=== PATIENT | female | born 1955 | race Caucasian/White ===

== ENCOUNTER 2016-11-20 17:40 | Emergency (ER) | payer OTHER ==
--- NOTE | 2016-11-20 18:25 | DIAGNOSTIC IMAGING REPORT ---
PROCEDURE: XR SOFT TISSUE NECK INDICATION: FOREIGN BODY TECHNIQUE: AP and lateral views. COMPARISON: None. FINDINGS: Soft tissues of the neck are within normal limits, including the airway, laryngeal ventricle, and epiglottis. Nasopharynx appears normal. Radiopaque densities overlying the face consistent with skin makeup (reported by technologist). There are moderate degenerative change of the cervical spine with straightening of the cervical lordosis IMPRESSION: 1. Normal soft tissues of the neck.
--- NOTE | 2016-11-20 19:17 | ED ORDER SUMMARY ---
..... Patient: ABRAN ALEX OrderSheet [facility] VisitID: [id number] [place] [address] 61y, F Registration Date/Time: 11/20/2016 ORDER SHEET Weight: 56.6 kg (stated) Allergies: No Known Drug Allergy GENERAL ORDERS: Soft Tissue Neck Urgent (17:56 11/20/2016 Sonny VILLANUEVA) (Ack 18:10 NHouse ER Tech1) (18:10 NHouse ER Tech1) MEDICATION ORDERS: Glucagon IV 0.5 mg (NOW) (17:56 11/20/2016 Sonny VILLANUEVA) (18:15 LSullivan R.N.) GI Cocktail WHITE PO 30 mL with Lidocaine Viscous Mouth/Throat 15 mL, Maalox Plus Oral 15 mL (NOW) (18:29 11/20/2016 Sonny VILLANUEVA) (Ack 18:31 JSimbeck R.N.) (18:37 JSimbeck R.N.) IV FLUIDS: IV Saline Lock (18:13 11/20/2016 LSullivan R.N. verbal order read back to Sonny VILLANUEVA) (18:14 LSullivan R.N.) ORDER SHEET NOTES: [Electronically signed by Spenser Ham R.N. (23:14 11/20/2016)] [Electronically signed by Chato Francis MD (03:45 11/22/2016)] [Electronically locked/signed by Spenser Ham R.N. (23:14 11/20/2016)]
--- NOTE | 2016-11-20 19:17 | ED NURSING NOTES ---
Clinical Report - Nurses [facility] [address] [place] [address] 11/20/2016 17:41 Patient: ABRAN ALEX TRIAGE Triage time 17:46. Acuity: LEVEL 2. Chief Complaint: SORE THROAT and (pt states has a half of radish stuck in her esophagus, able to swallow some water). Alert. --17:50 Valentine Lancaster R.N. 17:45 11/20/16. BP: 157/97. HR: 97. RR: 18. O2 saturation: 98%. Temp: 98 F. Pain level now: 02/20. --17:50 Valentine Lancaster R.N. Weight: 56.6 kg stated. Height/Length: 63 inches Per Patient. BMI: 22.1. --17:48 Valentine Lancaster R.N. Medications Bhrt. --17:50 Valentine Lancaster R.N. Allergies No Known Drug Allergy. --17:50 Valentine Lancaster R.N. History Arrived by private vehicle. Historian: patient. Accompanied by spouse. Primary physician ([facility]). This started just prior to arrival and today. PAST MEDICAL HX: Negative. Immunizations: status is unknown. SURGERY HX: No history of previous surgery. SOCIAL HX: Former smoker, end date 1991. Never smoker. Occasional alcohol use. No drug use. NUTRITIONAL RISK ASSESSMENT: The nutritional risk assessment revealed no deficiencies. FUNCTIONAL ASSESSMENT: Functional assessment: no impairments noted. LEARNING NEEDS ASSESSMENT: The learning needs assessment revealed no barriers. --17:50 Valentine Lancaster R.N. SOCIAL HX: The patient has not traveled outside the [place] The patient was not exposed to MRSA. No infectious disease exposure. ABUSE ASSESSMENT: Abuse assessment: The patient was asked "Do you feel safe in your home?" and "Has anyone hurt you or threatened to hurt you?". No report of abuse. SELF HARM ASSESSMENT: A self harm assessment was performed. The patient answered "no" to the question "Do you have thoughts of harming or killing yourself?" and "Have you recently had thoughts about harming or killing others?". --19:10 Spenser Ham R.N. PROBLEMS: no known problems. ADDITIONAL SURGERIES: no known surgeries. Interventions ID band on patient. To room. --17:50 Valentine Lancaster R.N. PHYSICAL ASSESSMENT 17:50 11/20/16. GENERAL / NEURO / PSYCH: Alert. Oriented X 4. ( stridor heard upper airway). --17:50 Valentine Lancaster R.N. NURSING PROGRESS NOTES 17:51 11/20/16. Patient identifiers checked. Call light placed in reach. Bed placed in lowest position. Brakes of bed on. Patient ready for evaluation- chart flagged. --17:51 Valentine Lancaster R.N. ( ERMD made aware of pt). --17:51 Valentine Lancaster R.N. 17:59 11/20/2016 Site #1 started via IV in the right wrist with an 20g angiocath, with aseptic technique and good blood return; one attempt. Blood drawn: rainbow set. Labeled in the presence of the patient and sent to the lab. Saline lock flushed with 10 mL saline. --18:14 Valentine Lancaster R.N. 18:05 11/20/2016 Glucagon IVP 0.5 mg given over 1 minute(s) via site #1. Allergies verified and confirmed 5 rights. IV flushed thoroughly pre- and post-medication administration. --18:15 Valentine Lancaster R.N. 18:10. corporate specialist, pulse oximeter and NIBP monitor placed on patient; cardiac cath technologist- Lead II and V1; monitor alarms on. ( Pt is clearly uncomfortable, tonsil suction within pt's reach). --18:21 Valentine Lancaster R.N. 18:35 11/20/2016 GI COCKTAIL WHITE (Simethicone) PO Oral Suspension 30 mL given. Allergies verified and confirmed 5 rights. --18:37 Perez Wells R.N. 19:00 11/20/16. HR: 76. RR: 24. O2 saturation: 100%. --19:00 Valentine Lancaster R.N. Oxygen discontinued (Removing oxygen source to ensure oxygen saturation is stable before discharge.). corporate specialist, pulse oximeter and NIBP monitor placed on patient; cardiac cath technologist- Lead II. The patient is calm and resting quietly. ( Abran says she is not experiencing any pain other than feeling discomfort when she swallows.). GENERAL / NEURO / PSYCH: [place] Coma Scale: 15- eyes open spontaneously (4); best verbal response- oriented x 4 (5); best motor response- obeys commands (6). RESPIRATORY: No respiratory distress. No respiratory distress. Chest nontender. Breath sounds normal. SKIN: Skin is warm and dry. Skin color is within normal limits for race. Two patient identifiers checked. Call light placed in reach. Side rails up x 2. Bed placed in lowest position. Brakes of bed on. Care transferred and report received (MIC Grijalva). --19:10 Spenser Ham R.N. 19:08 11/20/16. BP: 134/83 (regular adult cuff) taken on the left arm, via an automated monitor, while lying. HR: 81 (regular and normal rate). RR: 20 (regular, unlabored and normal). O2 saturation: 100% on nasal cannula at 3 liters/minute. Temp: 98.2 F (oral). Pain level now: 0/10. --19:10 Spenser Ham R.N. 20:02. The patient is calm and resting quietly. RESPIRATORY: No respiratory distress. SKIN: Skin is warm and dry. Skin color is within normal limits for race. --20:05 Matthew Bob R.N. DISPOSITION / DISCHARGE 20:00 11/20/2016 Site #1 removed upon discharge. Catheter intact. Bandage applied. --20:05 Matthew Bob R.N. Departure time: 20:04. Condition at departure: stable. No learning barriers present. Discharge instructions provided and reviewed with the patient and spouse. Patient and spouse verbalized understanding. Written instructions provided in Armenian. The patient was discharged home and accompanied by spouse. She left the Emergency Department ambulatory and via private vehicle. Spouse driving. FALL RISK ASSESSMENT: Fall risk assessment completed. No fall risk identified. --20:05 Matthew Bob R.N. 19:59 11/20/16. BP: 137/85. HR: 76. RR: 16. O2 saturation: 96% on room air. --20:05 Matthew Bob R.N. 19:59 11/20/16. Pain level now: 0/10. Additional comments: Patient reports mild pain when she swallows . --20:08 Matthew Bob R.N. Locked/Released at 11/20/2016 23:14 by Spenser Ham R.N.
--- NOTE | 2016-11-20 19:17 | ED CLINICAL REPORT ---
Clinical Report - Physicians/Mid Levels [facility] [address] [place] [address] 11/20/2016 17:41 Patient: ABRAN ALEX Time Seen: 17:50. Arrived- By private vehicle. Historian- patient. HISTORY OF PRESENT ILLNESS Chief Complaint: FOREIGN BODY SENSATION IN THROAT. This started just prior to arrival and is still present. It was abrupt in onset and has been constant. Pain described as mild. (The patient reports that she and her were eating vegetables. There was a piece of radish that she did not feel she chewed completely and went down her throat and feels as though it is stuck. She's been able to drink water and handles her own secretions and says that she has not had any difficulty breathing. However, she still feels as though it is stuck in her throat). REVIEW OF SYSTEMS No chills, fever, sweats, calf pain or chest pain. No cough, difficulty breathing, pedal edema, palpitations or abdominal pain. No constipation, diarrhea, nausea, vomiting or urinary problems. All systems otherwise negative, except as recorded above. PAST HISTORY Problems: no known problems. Additional Surgeries: no known surgeries. Medications: Bhrt. Allergies: No Known Drug Allergy. SOCIAL HISTORY Former smoker, end date 1997. Occasional alcohol use. No drug use. FAMILY HISTORY No significant family medical history. ADDITIONAL NOTES The nursing notes have been reviewed. PHYSICAL EXAM Vital Signs: 11/20/2016 17:45 BP: 157/97. HR: 97. RR: 18. O2 saturation: 98%. Temp: 98 F. Pain level now: 4/10. Have been reviewed. Appearance: Alert. Eyes: Pupils equal, round and reactive to light. ENT: Ears normal. Nose normal. Pharynx normal. Lips normal. Gums normal. No trismus present. Uvula midline. Neck: Normal inspection. Trachea midline. No adenopathy. Thyroid normal. Neck supple. CVS: Normal heart rate and rhythm. Heart sounds normal. Respiratory: No respiratory distress. Breath sounds normal. Abdomen: Soft and nontender. No organomegaly. Skin: Normal skin color. No rash. Normal skin turgor. Extremities: Extremities exhibit normal ROM. Extremities nontender. Neuro: No motor deficit. No sensory deficit. PROGRESS AND PROCEDURES Course of Care: I reviewed the case by phone with Dr. Barnes. He feels that since the patient is able to handle her secretions as well as drink liquids and has no airway issues that it is safe for her to be discharged home. If the globus sensation persists in the morning she is to call his office and he can arrange for an EGD at that point. This plan was reviewed with her and she feels comfortable with that she also agrees that if her symptoms worsen or if any new ones develop she will return to the emergency room. Patient is stable. Patient/family counseled. Old medical records ordered. Old records unavailable. Disposition: Discharged. Condition: stable. CLINICAL IMPRESSION Possible esophageal foreign body. globus sensation. INSTRUCTIONS Drink plenty of fluids. Take clear liquids only. Nothing by mouth after midnight. (do not eat any solid foods. Only have clear liquids until midnight tonight. Do not eat or drink anything after that. If the sensation of a foreign body in your throat persists at 7 AM tomorrow, Call Dr. Victoria's office and he will arrange for an endoscopy as discussed. Return here sooner if your symptoms worsen or if any new symptoms develop as discussed.). Warnings: GENERAL WARNINGS: Return or contact your physician immediately if your condition worsens or changes unexpectedly, if not improving as expected, or if other problems arise. Understanding of the discharge instructions verbalized by patient. Follow-up with: Levi Barnes MD, General Surgeon, , [facility], [address] [place] [address], [facility] Follow up tomorrow. Call for an appointment. (Electronically signed by Chato Francis MD 11/22/2016 3:45)
--- NOTE | 2016-11-20 19:17 | ED ORDER SUMMARY ---
..... Patient: ABRAN ALEX OrderSheet [facility] VisitID: [id number] [place] [address] 61y, F Registration Date/Time: 11/20/2016 ORDER SHEET Weight: 56.6 kg (stated) Allergies: No Known Drug Allergy GENERAL ORDERS: Soft Tissue Neck Urgent (17:56 11/20/2016 Sonny VILLANUEVA) (Ack 18:10 NHouse ER Tech1) (18:10 NHouse ER Tech1) MEDICATION ORDERS: Glucagon IV 0.5 mg (NOW) (17:56 11/20/2016 Sonny VILLANUEVA) (18:15 LSullivan R.N.) GI Cocktail WHITE PO 30 mL with Lidocaine Viscous Mouth/Throat 15 mL, Maalox Plus Oral 15 mL (NOW) (18:29 11/20/2016 Sonny VILLANUEVA) (Ack 18:31 JSimbeck R.N.) (18:37 JSimbeck R.N.) IV FLUIDS: IV Saline Lock (18:13 11/20/2016 LSullivan R.N. verbal order read back to Sonny VILLANUEVA) (18:14 LSullivan R.N.) ORDER SHEET NOTES: [Electronically signed by Spenser Ham R.N. (23:14 11/20/2016)] [Electronically signed by Chato Francis MD (03:45 11/22/2016)] [Electronically locked/signed by Spenser Ham R.N. (23:14 11/20/2016)]
--- NOTE | 2016-11-20 19:17 | ED CLINICAL REPORT ---
Clinical Report - Physicians/Mid Levels [facility] [address] [place] [address] 11/20/2016 17:41 Patient: ABRAN ALEX Time Seen: 17:50. Arrived- By private vehicle. Historian- patient. HISTORY OF PRESENT ILLNESS Chief Complaint: FOREIGN BODY SENSATION IN THROAT. This started just prior to arrival and is still present. It was abrupt in onset and has been constant. Pain described as mild. (The patient reports that she and her were eating vegetables. There was a piece of radish that she did not feel she chewed completely and went down her throat and feels as though it is stuck. She's been able to drink water and handles her own secretions and says that she has not had any difficulty breathing. However, she still feels as though it is stuck in her throat). REVIEW OF SYSTEMS No chills, fever, sweats, calf pain or chest pain. No cough, difficulty breathing, pedal edema, palpitations or abdominal pain. No constipation, diarrhea, nausea, vomiting or urinary problems. All systems otherwise negative, except as recorded above. PAST HISTORY Problems: no known problems. Additional Surgeries: no known surgeries. Medications: Bhrt. Allergies: No Known Drug Allergy. SOCIAL HISTORY Former smoker, end date 1997. Occasional alcohol use. No drug use. FAMILY HISTORY No significant family medical history. ADDITIONAL NOTES The nursing notes have been reviewed. PHYSICAL EXAM Vital Signs: 11/20/2016 17:45 BP: 157/97. HR: 97. RR: 18. O2 saturation: 98%. Temp: 98 F. Pain level now: 4/10. Have been reviewed. Appearance: Alert. Eyes: Pupils equal, round and reactive to light. ENT: Ears normal. Nose normal. Pharynx normal. Lips normal. Gums normal. No trismus present. Uvula midline. Neck: Normal inspection. Trachea midline. No adenopathy. Thyroid normal. Neck supple. CVS: Normal heart rate and rhythm. Heart sounds normal. Respiratory: No respiratory distress. Breath sounds normal. Abdomen: Soft and nontender. No organomegaly. Skin: Normal skin color. No rash. Normal skin turgor. Extremities: Extremities exhibit normal ROM. Extremities nontender. Neuro: No motor deficit. No sensory deficit. PROGRESS AND PROCEDURES Course of Care: I reviewed the case by phone with Dr. Barnes. He feels that since the patient is able to handle her secretions as well as drink liquids and has no airway issues that it is safe for her to be discharged home. If the globus sensation persists in the morning she is to call his office and he can arrange for an EGD at that point. This plan was reviewed with her and she feels comfortable with that she also agrees that if her symptoms worsen or if any new ones develop she will return to the emergency room. Patient is stable. Patient/family counseled. Old medical records ordered. Old records unavailable. Disposition: Discharged. Condition: stable. CLINICAL IMPRESSION Possible esophageal foreign body. globus sensation. INSTRUCTIONS Drink plenty of fluids. Take clear liquids only. Nothing by mouth after midnight. (do not eat any solid foods. Only have clear liquids until midnight tonight. Do not eat or drink anything after that. If the sensation of a foreign body in your throat persists at 7 AM tomorrow, Call Dr. Victoria's office and he will arrange for an endoscopy as discussed. Return here sooner if your symptoms worsen or if any new symptoms develop as discussed.). Warnings: GENERAL WARNINGS: Return or contact your physician immediately if your condition worsens or changes unexpectedly, if not improving as expected, or if other problems arise. Understanding of the discharge instructions verbalized by patient. Follow-up with: Levi Barnes MD, General Surgeon, , [facility], [address] [place] [address], [facility] Follow up tomorrow. Call for an appointment. (Electronically signed by Chato Francis MD 11/22/2016 3:45)
--- NOTE | 2016-11-20 19:17 | ED NURSING NOTES ---
Clinical Report - Nurses [facility] [address] [place] [address] 11/20/2016 17:41 Patient: ABRAN ALEX TRIAGE Triage time 17:46. Acuity: LEVEL 2. Chief Complaint: SORE THROAT and (pt states has a half of radish stuck in her esophagus, able to swallow some water). Alert. --17:50 Valentine Lancaster R.N. 17:45 11/20/16. BP: 157/97. HR: 97. RR: 18. O2 saturation: 98%. Temp: 98 F. Pain level now: 02/20. --17:50 Valentine Lancaster R.N. Weight: 56.6 kg stated. Height/Length: 63 inches Per Patient. BMI: 22.1. --17:48 Valentine Lancaster R.N. Medications Bhrt. --17:50 Valentine Lancaster R.N. Allergies No Known Drug Allergy. --17:50 Valentine Lancaster R.N. History Arrived by private vehicle. Historian: patient. Accompanied by spouse. Primary physician ([facility]). This started just prior to arrival and today. PAST MEDICAL HX: Negative. Immunizations: status is unknown. SURGERY HX: No history of previous surgery. SOCIAL HX: Former smoker, end date 1991. Never smoker. Occasional alcohol use. No drug use. NUTRITIONAL RISK ASSESSMENT: The nutritional risk assessment revealed no deficiencies. FUNCTIONAL ASSESSMENT: Functional assessment: no impairments noted. LEARNING NEEDS ASSESSMENT: The learning needs assessment revealed no barriers. --17:50 Valentine Lancaster R.N. SOCIAL HX: The patient has not traveled outside the [place] The patient was not exposed to MRSA. No infectious disease exposure. ABUSE ASSESSMENT: Abuse assessment: The patient was asked "Do you feel safe in your home?" and "Has anyone hurt you or threatened to hurt you?". No report of abuse. SELF HARM ASSESSMENT: A self harm assessment was performed. The patient answered "no" to the question "Do you have thoughts of harming or killing yourself?" and "Have you recently had thoughts about harming or killing others?". --19:10 Spenser Ham R.N. PROBLEMS: no known problems. ADDITIONAL SURGERIES: no known surgeries. Interventions ID band on patient. To room. --17:50 Valentine Lancaster R.N. PHYSICAL ASSESSMENT 17:50 11/20/16. GENERAL / NEURO / PSYCH: Alert. Oriented X 4. ( stridor heard upper airway). --17:50 Valentine Lancaster R.N. NURSING PROGRESS NOTES 17:51 11/20/16. Patient identifiers checked. Call light placed in reach. Bed placed in lowest position. Brakes of bed on. Patient ready for evaluation- chart flagged. --17:51 Valentine Lancaster R.N. ( ERMD made aware of pt). --17:51 Valentine Lancaster R.N. 17:59 11/20/2016 Site #1 started via IV in the right wrist with an 20g angiocath, with aseptic technique and good blood return; one attempt. Blood drawn: rainbow set. Labeled in the presence of the patient and sent to the lab. Saline lock flushed with 10 mL saline. --18:14 Valentine Lancaster R.N. 18:05 11/20/2016 Glucagon IVP 0.5 mg given over 1 minute(s) via site #1. Allergies verified and confirmed 5 rights. IV flushed thoroughly pre- and post-medication administration. --18:15 Valentine Lancaster R.N. 18:10. conveyor monitor, pulse oximeter and NIBP monitor placed on patient; radiation monitor- Lead II and V1; monitor alarms on. ( Pt is clearly uncomfortable, tonsil suction within pt's reach). --18:21 Valentine Lancaster R.N. 18:35 11/20/2016 GI COCKTAIL WHITE (Simethicone) PO Oral Suspension 30 mL given. Allergies verified and confirmed 5 rights. --18:37 Perez Wells R.N. 19:00 11/20/16. HR: 76. RR: 24. O2 saturation: 100%. --19:00 Valentine Lancaster R.N. Oxygen discontinued (Removing oxygen source to ensure oxygen saturation is stable before discharge.). conveyor monitor, pulse oximeter and NIBP monitor placed on patient; radiation monitor- Lead II. The patient is calm and resting quietly. ( Abran says she is not experiencing any pain other than feeling discomfort when she swallows.). GENERAL / NEURO / PSYCH: [place] Coma Scale: 15- eyes open spontaneously (4); best verbal response- oriented x 4 (5); best motor response- obeys commands (6). RESPIRATORY: No respiratory distress. No respiratory distress. Chest nontender. Breath sounds normal. SKIN: Skin is warm and dry. Skin color is within normal limits for race. Two patient identifiers checked. Call light placed in reach. Side rails up x 2. Bed placed in lowest position. Brakes of bed on. Care transferred and report received (MIC Grijalva). --19:10 Spenser Ham R.N. 19:08 11/20/16. BP: 134/83 (regular adult cuff) taken on the left arm, via an automated monitor, while lying. HR: 81 (regular and normal rate). RR: 20 (regular, unlabored and normal). O2 saturation: 100% on nasal cannula at 3 liters/minute. Temp: 98.2 F (oral). Pain level now: 0/10. --19:10 Spenser Ham R.N. 20:02. The patient is calm and resting quietly. RESPIRATORY: No respiratory distress. SKIN: Skin is warm and dry. Skin color is within normal limits for race. --20:05 Matthew Bob R.N. DISPOSITION / DISCHARGE 20:00 11/20/2016 Site #1 removed upon discharge. Catheter intact. Bandage applied. --20:05 Matthew Bob R.N. Departure time: 20:04. Condition at departure: stable. No learning barriers present. Discharge instructions provided and reviewed with the patient and spouse. Patient and spouse verbalized understanding. Written instructions provided in Kinyarwanda. The patient was discharged home and accompanied by spouse. She left the Emergency Department ambulatory and via private vehicle. Spouse driving. FALL RISK ASSESSMENT: Fall risk assessment completed. No fall risk identified. --20:05 Matthew Bob R.N. 19:59 11/20/16. BP: 137/85. HR: 76. RR: 16. O2 saturation: 96% on room air. --20:05 Matthew Bob R.N. 19:59 11/20/16. Pain level now: 0/10. Additional comments: Patient reports mild pain when she swallows . --20:08 Matthew Bob R.N. Locked/Released at 11/20/2016 23:14 by Spenser Ham R.N.
--- NOTE | 2016-11-22 03:45 | ED MED RECONCILIATION SUMMARY ---
Patient: ABRAN ALEX Medication Reconciliation Report [facility] VisitID: [id number] [address] [place] [address] 61y, F Registration Date/Time: 11/20/2016 Weight: 56.6 kg Height/Length: 63 in. BMI: 22.1 ALLERGIES: No Known Drug Allergy The patient's Home Medications are listed below: THE FOLLOWING MEDICATIONS NEED TO BE RECONCILED: Bhrt The source(s) of the original Home Medication information: Not obtained. The following Medications were given to the patient in the Emergency Department: Glucagon [IVP] IVP 0.5 mg, administered: 11/20/2016 6:05:00 PM GI COCKTAIL WHITE [PO] PO 30 mL, administered: 11/20/2016 6:35:00 PM The following Medications were prescribed to the patient: None.
--- NOTE | 2016-11-22 03:45 | ED MAR SUMMARY ---
..... Medication Administration Record [facility] [address] [place] [address] Patient: ABRAN ALEX Visit ID: [id number] 61y, F Weight: 56.6 kg Height/Length: 63 in BMI: 22.1 ALLERGIES: No Known Drug Allergy Given 18:05 11/20/2016 Valentine Lancaster RAdelinaNAdelina Medication Administered: GLUCAGON [IVP], Dose: 0.5 mg IVP over 1 minute(s), Site: #1 right wrist. Medication Ordered: Glucagon IV 0.5 mg (NOW). Given 18:35 11/20/2016 Perez Wells RLulu Medication Administered: GI COCKTAIL WHITE [PO] (SIMETHICONE), Dose: 30 mL Oral Suspension PO. Medication Ordered: GI Cocktail WHITE PO 30 mL with Lidocaine Viscous Mouth/Throat 15 mL, Maalox Plus Oral 15 mL (NOW).
--- NOTE | 2016-11-22 03:45 | ED MED RECONCILIATION SUMMARY ---
Patient: ABRAN ALEX Medication Reconciliation Report [facility] VisitID: [id number] [address] [place] [address] 61y, F Registration Date/Time: 11/20/2016 Weight: 56.6 kg Height/Length: 63 in. BMI: 22.1 ALLERGIES: No Known Drug Allergy The patient's Home Medications are listed below: THE FOLLOWING MEDICATIONS NEED TO BE RECONCILED: Bhrt The source(s) of the original Home Medication information: Not obtained. The following Medications were given to the patient in the Emergency Department: Glucagon [IVP] IVP 0.5 mg, administered: 11/20/2016 6:05:00 PM GI COCKTAIL WHITE [PO] PO 30 mL, administered: 11/20/2016 6:35:00 PM The following Medications were prescribed to the patient: None.
--- NOTE | 2016-11-22 03:45 | ED DISCHARGE INSTRUCTIONS ---
Patient: ABRAN ALEX General Instructions [facility] VisitID: [id number] [address] [id number] 61y, F Registration Date/Time: 11/20/2016 globus sensation. INSTRUCTIONS Drink plenty of fluids. Take clear liquids only. Nothing by mouth after midnight. (do not eat any solid foods. Only have clear liquids until midnight tonight. Do not eat or drink anything after that. If the sensation of a foreign body in your throat persists at 7 AM tomorrow, Call Dr. Victoria's office and he will arrange for an endoscopy as discussed. Return here sooner if your symptoms worsen or if any new symptoms develop as discussed.). Warnings: GENERAL WARNINGS: Return or contact your physician immediately if your condition worsens or changes unexpectedly, if not improving as expected, or if other problems arise. Understanding of the discharge instructions verbalized by patient. Follow-up with: Levi Barnes MD, General Surgeon, , [facility], [address] [place] [address] Follow up tomorrow. Call for an appointment. ADDITIONAL INFORMATION Clear Liquid Diet Clear liquids are any liquid that you can see through as well as those that are very easy to digest. This is used while the body is recovering from irritation or infection of the stomach or intestinal tract. It may also be used before special procedures or surgery. This diet is to be used no more than three days. You may include the following items. Adults Adults should drink a total of 23 quarts of liquid per day. It may be easier to drink small frequent servings rather than a few large ones. Liquids can include: Fruit juices.Strained orange juice or lemonade (no pulp), apple, grape and cranberry juice, clear fruit drinks, sports drinks Beverages.Sport drinks, sodas, mineral water (plain or flavored), tea, black coffee, liquid gelatin (add twice the recommended amount of water) Soups.Clear broth, consomm, bouillon Desserts.Plain gelatin, popsicles, fruit juice bars Children Over 2 years old The following liquids are acceptable for children over age 2: Fruit juices.Strained orange juice or lemonade (no pulp), apple, grape and cranberry juice, clear fruit drinks Beverages. Sports drinks, sodas, mineral water (plain or flavored), tea, liquid gelatin (add twice the recommended amount of water) Soups. Clear broth, consomm, bouillon Desserts. Plain gelatin, popsicles, fruit juice bars Children under 2 years old Oral rehydration fluids such are available at drug stores and most grocery stores without a prescription. You have been given the following additional information: Diet, Clear Liquid (Electronically signed by Chato Francis MD 11/22/2016 3:45)
--- NOTE | 2016-11-22 03:45 | ED DISCHARGE INSTRUCTIONS ---
Patient: ABRAN ALEX General Instructions [facility] VisitID: [id number] [address] [id number] 61y, F Registration Date/Time: 11/20/2016 globus sensation. INSTRUCTIONS Drink plenty of fluids. Take clear liquids only. Nothing by mouth after midnight. (do not eat any solid foods. Only have clear liquids until midnight tonight. Do not eat or drink anything after that. If the sensation of a foreign body in your throat persists at 7 AM tomorrow, Call Dr. Victoria's office and he will arrange for an endoscopy as discussed. Return here sooner if your symptoms worsen or if any new symptoms develop as discussed.). Warnings: GENERAL WARNINGS: Return or contact your physician immediately if your condition worsens or changes unexpectedly, if not improving as expected, or if other problems arise. Understanding of the discharge instructions verbalized by patient. Follow-up with: Levi Barnes MD, General Surgeon, , [facility], [address] [place] [address] Follow up tomorrow. Call for an appointment. ADDITIONAL INFORMATION Clear Liquid Diet Clear liquids are any liquid that you can see through as well as those that are very easy to digest. This is used while the body is recovering from irritation or infection of the stomach or intestinal tract. It may also be used before special procedures or surgery. This diet is to be used no more than three days. You may include the following items. Adults Adults should drink a total of 23 quarts of liquid per day. It may be easier to drink small frequent servings rather than a few large ones. Liquids can include: Fruit juices.Strained orange juice or lemonade (no pulp), apple, grape and cranberry juice, clear fruit drinks, sports drinks Beverages.Sport drinks, sodas, mineral water (plain or flavored), tea, black coffee, liquid gelatin (add twice the recommended amount of water) Soups.Clear broth, consomm, bouillon Desserts.Plain gelatin, popsicles, fruit juice bars Children Over 2 years old The following liquids are acceptable for children over age 2: Fruit juices.Strained orange juice or lemonade (no pulp), apple, grape and cranberry juice, clear fruit drinks Beverages. Sports drinks, sodas, mineral water (plain or flavored), tea, liquid gelatin (add twice the recommended amount of water) Soups. Clear broth, consomm, bouillon Desserts. Plain gelatin, popsicles, fruit juice bars Children under 2 years old Oral rehydration fluids such are available at drug stores and most grocery stores without a prescription. You have been given the following additional information: Diet, Clear Liquid (Electronically signed by Chato Francis MD 11/22/2016 3:45)
--- NOTE | 2016-11-22 03:45 | ED MAR SUMMARY ---
..... Medication Administration Record [facility] [address] [place] [address] Patient: ABRAN ALEX Visit ID: [id number] 61y, F Weight: 56.6 kg Height/Length: 63 in BMI: 22.1 ALLERGIES: No Known Drug Allergy Given 18:05 11/20/2016 Valentine Lancaster RAdelinaNAdelina Medication Administered: GLUCAGON [IVP], Dose: 0.5 mg IVP over 1 minute(s), Site: #1 right wrist. Medication Ordered: Glucagon IV 0.5 mg (NOW). Given 18:35 11/20/2016 Perez Wells RLulu Medication Administered: GI COCKTAIL WHITE [PO] (SIMETHICONE), Dose: 30 mL Oral Suspension PO. Medication Ordered: GI Cocktail WHITE PO 30 mL with Lidocaine Viscous Mouth/Throat 15 mL, Maalox Plus Oral 15 mL (NOW).
[2016-12-28] MEDS ORDERED: MULTIVITAMIN1 TAB PO ×2 (11:48→11:53)
[2016-12-28] MEDS ORDERED: ESTRADIOL1 MG PO (11:49)
[2016-12-28] MEDS ORDERED: [UNRECOGNIZED DRUG - OTHER] (11:50)
[2016-12-28] MEDS ORDERED: DHEA PO (11:50)
[2016-12-28] MEDS ORDERED: [UNRECOGNIZED DRUG - OTHER] TOP (11:51)
[2016-12-28] MEDS ORDERED: PROGESTERONE100 MG PO (11:53)
== END 2016-11-20 20:04 | disposition home or self-care (01) ==
LOC: ED SRH 17:40
DX: F45.8 Other somatoform disorders (principal); Z87.891 Personal history of nicotine dependence

== ENCOUNTER 2016-11-21 08:31 | Day surgery (SDC) | payer OTHER ==
[~2016-11-21] VITALS: Ht 157.5 cm; Wt 57.1 kg
--- NOTE | 2016-11-21 08:42 | ED ORDER SUMMARY ---
..... Patient: ABRAN ALEX OrderSheet [facility] VisitID: [id number] [place] [address] 61y, F Registration Date/Time: 11/21/2016 ORDER SHEET Weight: 56.6 kg (stated) Allergies: No Known Drug Allergy GENERAL ORDERS: Chest 1V Urgent (08:38 11/21/2016 [employer] DO) (Ack 8:39 LNations ER Tech1) (11:06 NHouse ER Tech1) CBC wo Diff Urgent (08:47 11/21/2016 [employer] [employer] DO) (Ack 8:56 LNations ER Tech1) (11:06 NHouse ER Tech1) BMP Urgent (08:47 11/21/2016 [employer] [employer] DO) (Ack 8:56 LNations ER Tech1) (11:06 NHouse ER Tech1) EKG - ER Stat (09:06 11/21/2016 [employer]) (9:14 LNations ER Tech1) MEDICATION ORDERS: IV FLUIDS: IV Saline Lock (08:38 11/21/2016 [employer]) (Ack 8:45 SStone R.N.) (8:58 SStone R.N.) IV NS : initial bolus 1000 mL (1000 mL/hr), then 125 mL/hr for X1 (NOW) (09:05 11/21/2016 [employer]) (Ack 9:07 SStone R.N.) (9:11 SStone R.N.) ORDER SHEET NOTES: [Electronically signed by Francoise Mandujano R.N. (12:11/21/2016)] [Electronically signed by Levi Sahni DO (08:27 11/22/2016)] [Electronically locked/signed by Francoise Mandujano R.N. (12:11/21/2016)]
--- NOTE | 2016-11-21 08:42 | ED CLINICAL REPORT ---
Clinical Report - Physicians/Mid Levels [facility] [address] [place] [address] 11/21/2016 8:33 Patient: ABRAN ALEX Time Seen: 08:37. Arrived- By private vehicle. Historian- patient. HISTORY OF PRESENT ILLNESS Chief Complaint: FOREIGN BODY SENSATION IN THROAT. This started about 14 hours ago and is still present. It was abrupt in onset and has been waxing/waning. Pain described as moderate. The patient has had a moderate sore throat with pain upon swallowing. (The patient reports that she and her were eating vegetables. There was a piece of radish that she did not feel she chewed completely and went down her throat and feels as though it is stuck. She's been able to drink water and handles her own secretions and says that she has not had any difficulty breathing. However, she still feels as though it is stuck in her throat). Similar symptoms previously: Recent medical care: The patient was seen recently by a health care provider. REVIEW OF SYSTEMS The patient is post-menopausal. No fever, cough, difficulty breathing, chest pain or nausea. No diarrhea, abdominal pain, difficulty with urination, headache or fainting episodes. No joint pain, skin rash or vomiting. Denies current . All systems otherwise negative, except as recorded above. PAST HISTORY Negative. No history of hypertension or diabetes mellitus. Surgeries: Had hysterectomy. SOCIAL HISTORY Former smoker. Occasional alcohol use. No drug use. FAMILY HISTORY Negative. ADDITIONAL NOTES The nursing notes have been reviewed. PHYSICAL EXAM Vital Signs: 11/21/2016 08:38 BP: 151/82. HR: 82. RR: 18. O2 saturation: 100%. Temp: 97.8 F. Pain level now: 0/10. Appearance: Alert. Patient in mild distress. Head: Normal external inspection. Eyes: Conjunctivae and eyelids normal. ENT: Pharynx normal. Gums normal. No trismus present. Uvula midline. Neck: Normal inspection. Trachea midline. No adenopathy. Neck supple. CVS: Normal heart rate and rhythm. Heart sounds normal. Pulses normal. Respiratory: No respiratory distress. Breath sounds normal. Abdomen: Soft and nontender. Skin: Normal skin color. No rash. Normal skin turgor. Extremities: Extremities exhibit normal ROM. Extremities nontender. Neuro: Oriented X 3. No motor deficit. LABS, X-RAYS, AND EKG EKG: EKG time: (09:23). Normal sinus rhythm. Normal ISABELA. Normal QRS complex. Normal axis. Normal ST and T waves. The study has been interpreted contemporaneously by me. The EKG appears to be a good tracing. Chest X-ray: No acute disease. Normal lung markings present. Normal heart size. Mediastinum normal. Great vessels normal. No infiltrate. Views: erect AP (portable). Technique: good. The X-rays were interpreted contemporaneously by me. Laboratory Tests: CBC wo Diff: (RAFY: 11/21/2016 08:50) ( MsgRcvd 11/21/2016 09:04) Final results Test Result Flag Units (Reference) WHITE BLOOD COUNT NO REFLEX 6.6 K/uL (4.5-11.5) RED BLOOD COUNT 4.63 M/uL (4.00-5.20) HEMOGLOBIN 13.8 gm/dL (12.0-16.0) HEMATOCRIT 41.3 % (36.0-46.0) MEAN CELL VOLUME 89 fL (80-100) MEAN CORPUSCULAR HGB 30 pg (26-34) MEAN CORPUSCULAR HGB CONC 33 g/dL (31-37) RED CELL DISTRIBUTION WIDTH 12.1 % (11.6-14.8) PLATELET COUNT 233 K/uL (150-400) BMP: (RAFY: 11/21/2016 08:50) ( MsgRcvd 11/21/2016 09:16) Final results Test Result Flag Units (Reference) GLUCOSE 102 mg/dL (70-110) BUN 15 mg/dL (7-18) CREATININE 0.6 mg/dL (0.6-1.3) Estimated GFR >60 mL/min Estimated GFR- >60 mL/min Note: Persistent reduction over 3 months in eGFR<60 mL/min/1.73 m2 defines CKD. Patients with eGFR values>=60 mL/min/1.73 m2 may also have CKD if evidence ofpersistent proteinuria. Additional information may be foundat www.[email or web address].org. SODIUM 143 mmol/L (136-145) POTASSIUM 4.3 mmol/L (3.5-5.1) CHLORIDE 105 mmol/L (98-107) CARBON DIOXIDE 27 mmol/L (21-32) CALCIUM 8.9 mg/dL (8.5-10.1) . Pulse Oximetry: 11/21/2016 08:38 O2 saturation: 100%. (FIO2 - room air). Interpretation: normal. PROGRESS AND PROCEDURES Course of Care: Normal Saline 1 liter IVPB given. Pt with persistent FB sensation in the throat for over 14 hours. She is at risk for esophageal injury if has prolonged compression of the esophageal wall resulting in possible ischemia. Dr Liu will take pt to the OR now for emergent scope. NPO except fluids since dinner last night. Discussed case with on-call health care provider, (Cameron). Reviewed test results. Agreed upon treatment plan. Health care provider will see patient in hospital. Patient/family counseled. Old ED records reviewed. Disposition: Observation via Surgery. Condition: stable. CLINICAL IMPRESSION Impacted esophageal foreign body: food. Essential hypertension. INSTRUCTIONS Follow-up: Screening today revealed the patient's blood pressure to be in the hypertensive range. The patient should follow up with a primary care provider for blood pressure management. The patient was admitted and blood pressure will be managed during the admission. (Electronically signed by Levi Sahni DO 11/22/2016 8:27)
--- NOTE | 2016-11-21 08:42 | ED ORDER SUMMARY ---
..... Patient: ABRAN ALEX OrderSheet [facility] VisitID: [id number] [place] [address] 61y, F Registration Date/Time: 11/21/2016 ORDER SHEET Weight: 56.6 kg (stated) Allergies: No Known Drug Allergy GENERAL ORDERS: Chest 1V Urgent (08:38 11/21/2016 [employer] DO) (Ack 8:39 LNations ER Tech1) (11:06 NHouse ER Tech1) CBC wo Diff Urgent (08:47 11/21/2016 [employer] DO) (Ack 8:56 LNations ER Tech1) (11:06 NHouse ER Tech1) BMP Urgent (08:47 11/21/2016 [employer] DO) (Ack 8:56 LNations ER Tech1) (11:06 NHouse ER Tech1) EKG - ER Stat (09:06 11/21/2016 [employer]) (9:14 LNations ER Tech1) MEDICATION ORDERS: IV FLUIDS: IV Saline Lock (08:38 11/21/2016 [employer]) (Ack 8:45 SStone R.N.) (8:58 SStone R.N.) IV NS : initial bolus 1000 mL (1000 mL/hr), then 125 mL/hr for X1 (NOW) (09:05 11/21/2016 [employer]) (Ack 9:07 SStone R.N.) (9:11 SStone R.N.) ORDER SHEET NOTES: [Electronically signed by Francoise Mandujano R.N. (12:11/21/2016)] [Electronically signed by Levi Sahni DO (08:27 11/22/2016)] [Electronically locked/signed by Francoise Mandujano R.N. (12:11/21/2016)]
--- NOTE | 2016-11-21 08:42 | ED NURSING NOTES ---
Clinical Report - Nurses [facility] [place] [address] 11/21/2016 8:33 [id number] Triage time 08:38. Acuity: LEVEL 2. Chief Complaint: (radish stuck in throat, seen last night. Here for reevaluation and possible endoscopy removal.). Alert. No acute distress. --08:44 Francoise Mandujano R.N. 08:38 11/21/16. BP: 151/82. HR: 82. RR: 18. O2 saturation: 100%. Temp: 97.8 F. Pain level now: 0/10. --08:44 Francoise Mandujano R.N. Weight: 56.6 kg stated. Height/Length: 63 inches Per Patient. BMI: 22.1. --08:42 Francoise Mandujano R.N. Medications Bhrt. --08:39 Francoise Mandujano R.N. Allergies No Known Drug Allergy. --08:39 Francoise Mandujano R.N. History Arrived by private vehicle. Historian: patient and family. Accompanied by family. This started just prior to arrival. Onset. (last night.). ( No difficulty breathing.). SOCIAL HX: Never smoker. Alcohol use; consumes beer occasionally. No drug use. No infectious disease exposure. FALL RISK ASSESSMENT: Fall risk assessment completed. No fall risk identified. NUTRITIONAL RISK ASSESSMENT: The nutritional risk assessment revealed no deficiencies. FUNCTIONAL ASSESSMENT: Functional assessment: no impairments noted. LEARNING NEEDS ASSESSMENT: The learning needs assessment revealed no barriers. SKIN INTEGRITY ASSESSMENT: Skin integrity risk assessment completed. No skin integrity risk identified. --08:44 Francoise Mandujano R.N. ( Pt is able to swallow secretions.). --08:44 Francoise Mandujano R.N. ADDITIONAL SURGERIES: Hysterectomy. --08:39 Francoise Mandujano R.N. Interventions ID band on patient. To treatment room. --08:44 Francoise Mandujano R.N. PHYSICAL ASSESSMENT ( last PO was last night at dinner.). GENERAL / NEURO / PSYCH: Alert. Oriented X 4. Appears anxious. RESPIRATORY: Respirations not labored. GI / : Abdomen soft. SKIN: Skin is warm and dry. --08:45 Francoise Mandujano R.N. NURSING PROGRESS NOTES Monitoring of patient in place. Portable chest x-ray. Patient gowned. Reassurance given. Patient identifiers checked. Call light placed in reach. Side rails up. Bed placed in lowest position. Brakes of bed on. Patient ready for evaluation. --08:45 Francoise Mandujano R.N. 08:58 11/21/2016 Site #1 started via IV hand with an 20g angiocath; one attempt. Blood drawn: rainbow set. Saline lock flushed with 10 mL saline. --08:58 Francoise Mandujano R.N. 09:11 11/21/2016 Started bag #1 1000 mL IV Fluids IV NS (Saline); at 1000 mL/hr over 1 hour(s) via site #1 --09:11 Francoise Mandujano R.N. EKG time: (922). EKG was ordered, performed by a tech and shown to the ED physician. --09:25 Vivien Casanova ER Tech1 ( Patient awaiting bed for admit.). --10:06 Francoise Mandujano R.N. Call light placed in reach. Side rails up. Bed placed in lowest position. --10:06 Francoise Mandujano R.N. ( blanket provided. Pt. informed of status. Admit in approx 1 hour, surgery later today.). --10:52 Francoise Mandujano R.N. 10:45. --11:22 Francoise Mandujano R.N. 11:21 11/21/16. BP: 118/73. HR: 86. RR: 18. O2 saturation: 99%. --11:22 Francoise Mandujano R.N. DISPOSITION / DISCHARGE Departure time: 1150. Condition at departure: stable. Admitted to Acute Care (312). Transported via stretcher by nurse. Report was given to a nurse via a phone call. Report included patient's care, treatment, medications, reviewed medication reconcilliation, and condition (including any recent changes or anticipated changes). All questions were answered. Report was acknowledged. Bed obtained (312). ( IV site unremarkable on transport). Patient's personal items; items were placed in belongings bag and transported with the patient. --12:27 Francoise Mandujano R.N. 12:25 11/21/16. BP: 118/73. HR: 86. RR: 18. O2 saturation: 99%. Pain level now: 0/10. --12:27 Francoise Mandujano R.N. Locked/Released at 11/21/2016 12:28 by Francoise Mandujano R.N.
--- NOTE | 2016-11-21 09:01 | DIAGNOSTIC IMAGING REPORT ---
PROCEDURE: XR CHEST 1 VIEW INDICATION: FOREIGN BODY SENSATION, initial encounter TECHNIQUE: Portable AP view 08:43 a.m. COMPARISON: None. FINDINGS: Lungs are clear. Heart and mediastinum are normal. Thorax is normal. IMPRESSION: 1. Negative chest.
--- NOTE | 2016-11-21 11:45 | NUR ---
Received patient from ER. Alert and with no complaints. Oriented to room and hospital routine. Resting in bed. Waiting for surgery. Reinforced need to remain NPO.
[2016-11-21 11:55] VITALS: BP 122/79
--- NOTE | 2016-11-21 13:39 | NUR ---
PATIENT OFF FLOOR FOR ENDOSCOPY.
--- NOTE | 2016-11-21 14:50 | NUR ---
PT RECEIVED TO PACU AROUSABLE AND COMFORTABLE, SAYING "I'M STILL AWAKE". VSS. DENIES PAIN OR NAUSEA.
--- NOTE | 2016-11-21 14:59 | NUR ---
PT AWAKE AND COMFORTABLE. CONVERSING, QUESTIONS ANSWERED. VSS.
--- NOTE | 2016-11-21 15:18 | Provider's Discharge Care Plan ---
Problem, Goal, Plan Problem List 1. Esophageal obstruction due to food impaction
--- NOTE | 2016-11-21 15:18 | Provider's Discharge Care Plan ---
Problem, Goal, Plan Problem List 1. Esophageal obstruction due to food impaction
--- NOTE | 2016-11-21 15:18 | NUR ---
TAKING ICE CHIPS PO. NO P[AIN, NO NAUSEA. VSS.
--- NOTE | 2016-11-21 15:29 | OPERATIVE REPORT ---
DATE OF SURGERY: 11/21/2016 SURGEON: Levi Barnes MD PREOPERATIVE DIAGNOSIS: 1. Foreign body of esophagus POSTOPERATIVE DIAGNOSIS: 1. Normal esophagogastroduodenoscopy PROCEDURE PERFORMED: 1. Esophagogastroduodenoscopy ANESTHESIA: Total IV general. INDICATIONS: The patient is a 61-year-old woman who felt she had a piece of radish stuck in her throat. She was able to swallow liquids and was sent home last night from the emergency department, since she could tolerate liquids. This morning, the patient continued to have a foreign body sensation and presented again. SURGICAL TECHNIQUE: The patient was taken to the endoscopy suite, where total IV general was administered and the patient was placed in the left lateral decubitus position. A well-lubricated endoscope was inserted down the esophagus, stomach, and duodenum under direct vision. There was a moderate amount of bile laking in the stomach. The duodenum was entered, and there were no foreign bodies. There were no food particles seen. A retroflexed view was normal. The bile was suctioned away. The GE junction did not look tight, and there were no foreign bodies at this location. The endoscope was gradually withdrawn, and there were no signs of strictures, foreign bodies or pieces of food anywhere, including a careful look at the oropharynx. In summary, this patient has a foreign body sensation that has persisted despite the fact that we have documented clearance of the potential foreign body. In the event that she continues to have the sensation, then a manometry workup may be appropriate to look for evidence of "a motility disorder" simulating this sensation.
[2016-11-21 15:34] VITALS: BP 137/83
--- NOTE | 2016-11-21 15:42 | CONSULTATION REPORT ---
DATE OF CONSULTATION: 11/21/2016 CHIEF COMPLAINT: 1. Foreign body sensation of esophagus HISTORY OF PRESENT ILLNESS: The patient is a 61-year-old woman who presented to the emergency department the night before with the sensation of a foreign body in her throat. She was able to swallow liquids without problems and was sent home, but this morning returned to the emergency room for continuous sensation of a foreign body in the upper third of her throat. She is able to tolerate fluids. MEDICAL/SURGICAL HISTORY: Medical diseases: None. Past surgery: C scope x2, hysterectomy, and left knee surgery. MEDICATIONS: 1. Hormones. 2. Vitamins. ALLERGIES: 1. NONE TO MEDICATIONS. SOCIAL HISTORY: The patient is . 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 She does not smoke cigarettes. She takes occasional alcohol. FAMILY HISTORY: Negative for esophageal cancer or diseases. REVIEW OF SYSTEMS: A multipoint review of systems was obtained and 12 systems were covered. The patient reports no other unexpected findings such as unexpected weight loss, hematemesis, hematochezia, anemia, cough, hemoptysis and others. PHYSICAL EXAMINATION: GENERAL: The patient is alert and cooperative. HEENT: Her ears and nose demonstrate no gross external lesions. Eyes are equal. She is anicteric. NECK: Without palpable masses or thyromegaly. CHEST: Clear to auscultation. HEART: Regular, without murmur or gallop. ABDOMEN: Reveals no localized tenderness. EXTREMITIES: Symmetric. She moves without restriction. IMPRESSION: 1. Possible foreign body in esophagus. Note, the patient believes a piece of radish is stuck in her throat. PLAN: I recommended upper GI endoscopy, as this sensation has persisted. The patient was made aware of the risks of endoscopy, including that of perforation and bleeding and would like to proceed as described.
--- NOTE | 2016-11-21 15:54 | NUR ---
PATIENT CAME BACK FROM ENDOSCOPY/PACU AT 1515. PATIENT STATES SHE HAS NO PAIN IN THROAT. VSS. VILLANUEVA WROTE DC ORDERS. IV DC'D WITH CATHETER INTACT.
--- NOTE | 2016-11-21 16:06 | NUR ---
DC INSTRUCTIONS GIVEN TO PATIENT. PATIENT ESCORTED OUT OF FACILITY BY FACILITY TECH AND TRANSPORTED TO HOME BY .
--- NOTE | 2016-11-22 08:27 | ED DISCHARGE INSTRUCTIONS ---
Patient: ABRAN ALEX General Instructions [facility] VisitID: [id number] [place] [address] 61y, F Registration Date/Time: 11/21/2016 Impacted esophageal foreign body: food. Essential hypertension. INSTRUCTIONS Follow-up: Screening today revealed the patient's blood pressure to be in the hypertensive range. The patient should follow up with a primary care provider for blood pressure management. The patient was admitted and blood pressure will be managed during the admission. ADDITIONAL INFORMATION High Blood Pressure -- To Be Confirmed [No Tx] Your blood pressure was higher today than normal. Sometimes anxiety or pain can cause a temporary rise in blood pressure that later returns to normal. If your blood pressure is high on one measurement, this does not mean that you have hypertension (a chronic illness). However, you must have your blood pressure measured again within the next few days to find out if its still high. A normal blood pressure is 120/80 or less. The first (top) number is the "systolic" pressure. The second (bottom) number is the "diastolic" pressure. Hypertension exists when either the top number is 140 or higher, OR the bottom number is 90 or higher on repeated measurements. Blood pressure in the range of 120-140 (systolic) or 80-89 (diastolic) is considered "pre-hypertension". This means your are at risk for getting hypertension. You should have regular blood pressure checks to be sure your blood pressure is not rising. Home Care: Measure your blood pressure on 3 different days and write down the results. This can be done at your doctor's office or this facility. Some pharmacies and grocery stores offer automated blood pressure machines for your use. Follow Up: If your blood pressure is "high" (over 120/80) on 2 out of 3 days, you will need to follow up with your doctor for further evaluation and treatment. DO NOT PUT THIS OFF! Untreated high blood pressure increases the risk for heart attack, also known as acute myocardial infarction, or AMI, and stroke. It is a treatable condition. Get Prompt Medical Attention if any of the following occur: Chest pain or shortness of breath Severe headache Throbbing or rushing sound in the ears Nosebleed Sudden severe abdominal pain Extreme drowsiness, confusion or fainting Dizziness or vertigo (dizziness with spinning sensation) Weakness of an arm or leg or one side of the face Difficulty with speech or vision You have been given the following additional information: Hypertension, To Be Confirmed (Electronically signed by Levi Sahni DO 11/22/2016 8:27)
--- NOTE | 2016-11-22 08:27 | ED MAR SUMMARY ---
..... Medication Administration Record [facility] [address] [place] [address] Patient: ABRAN ALEX Visit ID: [id number] 61y, F Weight: 56.6 kg Height/Length: 63 in BMI: 22.1 ALLERGIES: No Known Drug Allergy Start 09:11 11/21/2016 Francoise Mandujano R.N. Medication Administered: IV NS (SALINE), Dose: IV Fluids over 1 hour(s), Rate: 1000 mL/hr, Dispensed: 1000 mL bag, Site: #1 hand. Medication Ordered: IV NS : initial bolus 1000 mL (1000 mL/hr), then 125 mL/hr for X1 (NOW).
--- NOTE | 2016-11-22 08:27 | ED MAR SUMMARY ---
..... Medication Administration Record [facility] [address] [place] [address] Patient: ABRAN ALEX Visit ID: [id number] 61y, F Weight: 56.6 kg Height/Length: 63 in BMI: 22.1 ALLERGIES: No Known Drug Allergy Start 09:11 11/21/2016 Francoise Mandujano R.N. Medication Administered: IV NS (SALINE), Dose: IV Fluids over 1 hour(s), Rate: 1000 mL/hr, Dispensed: 1000 mL bag, Site: #1 hand. Medication Ordered: IV NS : initial bolus 1000 mL (1000 mL/hr), then 125 mL/hr for X1 (NOW).
--- NOTE | 2016-11-22 08:27 | ED MED RECONCILIATION SUMMARY ---
Patient: ABRAN ALEX Medication Reconciliation Report [facility] VisitID: [id number] [address] [place] [address] 61y, F Registration Date/Time: 11/21/2016 Weight: 56.6 kg Height/Length: 63 in. BMI: 22.1 ALLERGIES: No Known Drug Allergy The patient's Home Medications are listed below: THE FOLLOWING MEDICATIONS NEED TO BE RECONCILED: Bhrt The source(s) of the original Home Medication information: Not obtained. The following Medications were given to the patient in the Emergency Department: IV NS IV Fluids bolus 0, then 1000 mL/hr, administered: 11/21/2016 9:11:00 AM The following Medications were prescribed to the patient: None.
--- NOTE | 2016-11-22 08:27 | ED MED RECONCILIATION SUMMARY ---
Patient: ABRAN ALEX Medication Reconciliation Report [facility] VisitID: [id number] [address] [place] [address] 61y, F Registration Date/Time: 11/21/2016 Weight: 56.6 kg Height/Length: 63 in. BMI: 22.1 ALLERGIES: No Known Drug Allergy The patient's Home Medications are listed below: THE FOLLOWING MEDICATIONS NEED TO BE RECONCILED: Bhrt The source(s) of the original Home Medication information: Not obtained. The following Medications were given to the patient in the Emergency Department: IV NS IV Fluids bolus 0, then 1000 mL/hr, administered: 11/21/2016 9:11:00 AM The following Medications were prescribed to the patient: None.
[2016-12-28] MEDS ORDERED: MULTIVITAMIN1 TAB PO ×2 (11:48→11:53)
[2016-12-28] MEDS ORDERED: ESTRADIOL1 MG PO (11:49)
[2016-12-28] MEDS ORDERED: DHEA PO (11:50)
[2016-12-28] MEDS ORDERED: [UNRECOGNIZED DRUG - OTHER] (11:50)
[2016-12-28] MEDS ORDERED: [UNRECOGNIZED DRUG - OTHER] TOP (11:51)
[2016-12-28] MEDS ORDERED: PROGESTERONE100 MG PO (11:53)
== END 2016-11-21 16:05 | disposition home or self-care (01) ==
LOC: ED SRH 08:31 → TRANS SRH 08:50 → SDC SRH 08:50 → TRANS SRH 08:51 → ACUTE3 SRH 11:56 → SDC SRH 16:05
PROVIDERS: Surgery
PROC: 0DJ08ZZ Inspection of Upper Intestinal Tract, Via Natural or Artificial Opening Endoscopic (ICD-10-PCS; principal; 2016-11-21 17:15)
DX: R09.89 Other specified symptoms and signs involving the circulatory and respiratory systems (principal); K92.89 Other specified diseases of the digestive system